=== PATIENT | male | born 1975 | race Caucasian/White ===

== ENCOUNTER 2016-05-09 17:31 | Emergency (ER) | payer OTHER ==
[2016-05-09 17:41] VITALS: BP 110/75
--- NOTE | 2016-05-09 17:59 | UC ---
Eye Complaint HPI - HPI Summary HPI Summary: 40 year old male presents for right eye lid swelling, yellow discharge, and itchiness x 2 days; today patient noticed that his left eye appeared reddened. Denies injury or changes in vision. - History of Current Complaint Chief Complaint: UCEye Stated Complaint: EYE IRRITATION Time Seen by Provider: 05/09/16 17:42 Hx Obtained From: Patient Onset/Duration: Gradual Onset Timing: Constant Severity Initially: Mild Severity Currently: Mild Pain Intensity: 2 Location of Injury: Conjunctiva, Eye Lid (upper) Character: Dull Aggravating Factor(s): Nothing Alleviating Factor(s): Nothing Associated Signs And Symptoms: Positive: Drainage (Purulent) - yellow drainage, Swelling - Upper right eye lid - Risk Factors Penetrating Injury Risk Factor: Negative Globe Rupture Risk Factors: Negative Acute Glaucoma Risk Factors: Negative Optic Artery Occlusion Risk Factors: Negative - Allergies/Home Medications Allergies/Adverse Reactions: Allergies Allergy/AdvReac Type Severity Reaction Status Date / Time No Known Allergies Allergy Verified 05/09/16 17:41 Home Medications: Home Medications Diazepam TAB(*) [Valium TAB(*)] 5 mg PO TID PRN 05/09/16 [History Confirmed ] Gabapentin TAB(NF) [Neurontin 600 mg TAB(NF)] 05/09/16 [History] Lurasidone HCl [Latuda] 05/09/16 [History] PMH/Surg Hx/FS Hx/Imm Hx Previously Healthy: Yes Endocrine History Of: Denies: Diabetes, Thyroid Disease, Hyperthyroidism, Hypothyroidism, Dyslipidemia Cardiovascular History Of: Denies: Cardiac Disorders, Hypertension, Pacemaker/ICD, Myocardial Infarction , Congestive Heart Failure, Atrial Fibrillation, Deep Vein Thrombosis, Bleeding Disorders Respiratory History Of: Denies: COPD, Asthma, Bronchitis, Pneumonia, Pulmonary Embolism GI/ History Of: Denies: Gastroesophageal Reflux, Ulcer, Gastrointestinal Bleed, Gall Bladder Disease, Kidney Stones, Diverticulitis, Renal Disease, Urosepsis Neurological History Of: Denies: TIA, CVA, Dementia, Seizures, Migraine Psychological History Of: Reports: Bipolar Disorder - Surgical History Surgical History: Yes Surgery Procedure, Year, and Place: left knee - Family History Known Family History: Positive: Diabetes - Father, Other - Pulmonary Hypertension - Social History Occupation: Disabled Lives: Alone Alcohol Use: None Substance Use Type: None Smoking Status (MU): Never Smoked Tobacco Have You Smoked in the Last Year: No Review of Systems Constitutional: Negative Skin: Negative Eyes: Drainage - Right eye, Eye Redness - Left eye ENT: Negative Respiratory: Negative Cardiovascular: Negative Gastrointestinal: Negative Genitourinary: Negative Motor: Negative Neurovascular: Negative Musculoskeletal: Negative Neurological: Negative Psychological: Negative All Other Systems Reviewed And Are Negative: Yes Physical Exam Triage Information Reviewed: Yes Appearance: Well-Appearing, No Pain Distress Vital Signs: Initial Vital Signs Temp 98.6 F 05/09/16 17:38 Pulse 64 05/09/16 17:38 Resp 20 05/09/16 17:38 BP 110/75 05/09/16 17:38 Pulse Ox 99 05/09/16 17:38 Vital Signs Reviewed: Yes Eye Exam: Other Eyes: Positive: Discharge - Right eye, Other: - Left conjunctiva erythema ENT Exam: Normal Dental Exam: Normal Neck exam: Normal Neck: Positive: Supple, Nontender, No Lymphadenopathy Respiratory Exam: Normal Respiratory: Positive: Chest non-tender, Lungs clear, Normal breath sounds Cardiovascular Exam: Normal Cardiovascular: Positive: RRR, No Murmur, Pulses Normal Abdominal Exam: Normal Abdomen Description: Positive: Nontender, No Organomegaly, Soft Bowel Sounds: Positive: Present Musculoskeletal Exam: Normal Neurological Exam: Normal Psychological Exam: Normal Skin Exam: Normal Eye Complaint Course/Dx - Differential Dx/Diagnosis Provider Diagnoses: conjunctivitis Discharge - Discharge Plan Condition: Stable Disposition: HOME Prescriptions: Polymyx/Trimethoprim OPTH* [Polytrim OPHTH*] 1 drop BOTH EYES QID #1 btl Patient Education Materials: Conjunctivitis (ED) Referrals: Shelley Grant NP [Primary Care Provider] - If Needed (If you are not improving in four days, return for re-evaluation. Please call if you have a question about how you should be progressing.) Additional Instructions: If you are not improving in four days, return for re-evaluation. Please call if you have a question about how you should be progressing.
== END 2016-05-09 18:28 | disposition home or self-care (01) ==
LOC: UCEAST 17:31
DX: H10.33 Unspecified acute conjunctivitis, bilateral (principal)
CPT/HCPCS: 99202; G0463

== ENCOUNTER 2017-09-20 15:41 | Emergency (ER) | payer OTHER ==
[2017-09-20 16:26] VITALS: BP 128/86
--- NOTE | 2017-09-20 16:44 | UC ---
Skin Complaint HPI - HPI Summary HPI Summary: Patient presents with 24 hours onset of redness, pain and swelling of his right lower extremity. He states he noticed it yesterday and it has more than doubled in size since then. He complains of chills. He denies any insect bites, or ticks. He is currently self treating for poison jennifer. He denies any injury or trauma. - History of Current Complaint Chief Complaint: UCSkin Time Seen by Provider: 09/20/17 16:33 Stated Complaint: IRRATION ON RIGHT ANKLE Hx Obtained From: Patient Onset/Duration: Gradual Onset, Lasting Hours Skin Exposure Onset/Duration: Hours Ago Onset Severity: Mild Current Severity: Moderate Pain Intensity: 8 Location: Discrete Aggravating Factor(s): Touch Alleviating Factor(s): Nothing Associated Signs & Symptoms: Positive: Chills - Allergy/Home Medications Allergies/Adverse Reactions: Allergies Allergy/AdvReac Type Severity Reaction Status Date / Time No Known Allergies Allergy Verified 09/20/17 16:26 Home Medications: Home Medications Benztropine TAB* [Cogentin TAB*] 2 mg PO BEDTIME 09/20/17 [History Confirmed ] OXcarbazepine [Trileptal] 300 mg PO BID 09/20/17 [History Confirmed 09/20/17] traZODone TAB* [Desyrel TAB*] 50 mg PO BEDTIME 09/20/17 [History Confirmed 09/20] Review of Systems Constitutional: Negative Skin: Rash Eyes: Negative ENT: Negative Respiratory: Negative Cardiovascular: Negative Gastrointestinal: Negative Genitourinary: Negative Motor: Negative Neurovascular: Negative Musculoskeletal: Negative Neurological: Negative Psychological: Negative Is Patient Immunocompromised?: No All Other Systems Reviewed And Are Negative: Yes PMH/Surg Hx/FS Hx/Imm Hx Previously Healthy: Yes - Surgical History Surgical History: Yes Surgery Procedure, Year, and Place: left knee - Family History Known Family History: Positive: Diabetes - Father, Other - Pulmonary Hypertension - Social History Occupation: Employed Full-time Lives: Alone Alcohol Use: None Substance Use Type: None Smoking Status (MU): Former Smoker Have You Smoked in the Last Year: No Physical Exam Triage Information Reviewed: Yes Appearance: Well-Appearing Vital Signs: Initial Vital Signs Temp 97.8 F 09/20/17 16:22 Pulse 82 09/20/17 16:22 Resp 16 09/20/17 16:22 BP 128/86 09/20/17 16:22 Pulse Ox 99 09/20/17 16:22 Vital Signs Reviewed: Yes Eye Exam: Normal ENT Exam: Normal Neck exam: Normal Respiratory Exam: Normal Cardiovascular Exam: Normal Skin Exam: Other - LLE; inspection with erythma, circular pattern with central induration, no flucuance. With surrouding pink warm skin, tender on palpation. no lymphangitis Course/Dx - Course Course Of Treatment: Patient presents wit 24 hours lle redness, pain, and swelling. There is no puncture wound, nor has the patient had any tick bites. He reports chills and fatige. I feel he should go to the emergency department for higher level of care as I cannot obtain blood work, nor imaging. I discussed this with the patient and he is in agreement to drive self to ther emergency department for further evaluation. At the time of discharge he was hemodynamically stable, and had normal vital signs. - Differential Diagnoses - Skin Complaint Differential Diagnoses: Cellulitis - Diagnoses Provider Diagnoses: cellulitis Discharge - Sign-Out/Discharge Documenting (check all that apply): Discharge/Admit/Transfer - Discharge Plan Condition: Stable Disposition: [facility] Patient Education Materials: Cellulitis (DC) Referrals: Miki WEST,Yimi Valero [Primary Care Provider] - Additional Instructions: Go directly to the [facility] ER. - Billing Disposition and Condition Condition: STABLE Disposition: EMTALA
== END 2017-09-20 16:45 | disposition short-term general hospital (02) ==
LOC: UCEAST 15:41
DX: L03.115 Cellulitis of right lower limb (principal); R68.83 Chills (without fever); Z87.891 Personal history of nicotine dependence
CPT/HCPCS: 99212; G0463

== ENCOUNTER 2017-09-20 16:57 | Emergency (ER) | payer OTHER ==
[2017-09-20 18:10] LABS: ABS Basophils 0 10^3/ul (0-0.2); ABS Eosinophils 0.1 10^3/ul (0-0.6); ABS Lymphocytes 1.2 10^3/ul (1.0-4.8); ABS Monocytes 0.6 10^3/ul (0-0.8); ABS Neutrophils 5.6 10^3/ul (1.5-7.7); ABS Nucleated RBC 0 10^3/ul; Eosinophil % 1.3 % (0-6); Hematocrit 44 % (42-52); Hemoglobin 15.3 g/dl (14.0-18.0); Lymphocyte % 15.6 % (25-47); Mean Corpuscular HGB Conc 35 g/dl (31-36); Mean Corpuscular Hemoglobin 32 pg (27-31); Mean Corpuscular Volume 91 fL (80-94); Mean Platelet Volume 8.6 um3 (7.4-10.4); Nucleated Red Blood Cells % 0.1; Platelet Count 151 10^3/ul (150-450); Red Blood Count 4.81 10^6/ul (4.0-5.4); Red Cell Distribution Width 12 % (10.5-15); White Blood Count 7.6 10^3/ul (3.5-10.8)
[2017-09-20 18:27] LABS: EGFR Non-African American 77.8 (>60)
--- NOTE | 2017-09-20 18:28 | ED ---
Skin Complaint - HPI Summary HPI Summary: Patient sent from to the ED complains of area of redness, pain, warmth, swelling on the medial right ankle 2 days. History of generalized poison jennifer infection 17 days but denies any prior rash/lesions/trauma at medial right ankle. Denies purulent discharge, fever, N/V, decreased range of motion in right ankle/foot/knee, rt calf tenderness, CP, SOB, abdomen pain. No history of IV drug use, no history of abscess. Denies history of immuno-incompetence. Denies medical history. - History of Current Complaint Chief Complaint: EDSoftTissueLowExtr Time Seen by Provider: 09/20/17 17:41 Stated Complaint: SWOLLEN RT ANKLE Hx Obtained From: Patient Onset/Duration: Started Days Ago Pain Intensity: 8 - Allergy/Home Medications Allergies/Adverse Reactions: Allergies Allergy/AdvReac Type Severity Reaction Status Date / Time No Known Allergies Allergy Verified 09/20/17 17:08 Home Medications: Home Medications Benztropine TAB* [Cogentin TAB*] 2 mg PO QPM 09/20/17 [History Confirmed ] Lurasidone(*) [Latuda] 160 mg PO QPM 09/20/17 [History Confirmed 09/20/17] OXcarbazepine TAB(*) [Trileptal 300 mg TAB(*)] 300 mg PO BID 09/20/17 [History Confirmed 09/20/17] diPHENhydraMINE PO* [Benadryl PO 25 MG TAB*] 25 mg PO Q4H PRN 09/20/17 [History Confirmed 09/20/17] traZODone TAB* [Desyrel TAB*] 50 mg PO BEDTIME 09/20/17 [History Confirmed 09/20] PMH/Surg Hx/FS Hx/Imm Hx Endocrine/Hematology History: Denies: Hx Diabetes, Hx Thyroid Disease Cardiovascular History: Denies: Hx Congestive Heart Failure, Hx Deep Vein Thrombosis, Hx Hypertension , Hx Myocardial Infarction, Hx Pacemaker/ICD Respiratory History: Denies: Hx Asthma, Hx Chronic Obstructive Pulmonary Disease (COPD), Hx Pneumonia, Hx Pulmonary Embolism GI History: Denies: Hx Gall Bladder Disease, Hx Gastrointestinal Bleed, Hx Ulcer, Hx Urosepsis History: Denies: Hx Kidney Stones, Hx Renal Disease Sensory History: Denies: Hx Hearing Aid Neurological History: Denies: Hx Dementia, Hx Migraine, Hx Seizures, Hx Transient Ischemic Attacks (TIA) Psychiatric History: Reports: Hx Bipolar Disorder Denies: Hx Panic Disorder - Surgical History Surgery Procedure, Year, and Place: left knee - Immunization History Immunizations Up to Date: Yes Infectious Disease History: No Infectious Disease History: Denies: Traveled Outside the [place] in Last 30 Days - Family History Known Family History: Positive: Diabetes - Father, Other - Pulmonary Hypertension - Social History Alcohol Use: None Substance Use Type: Reports: None Smoking Status (MU): Former Smoker Have You Smoked in the Last Year: No Review of Systems Constitutional: Negative Eyes: Negative ENT: Negative Cardiovascular: Negative Respiratory: Negative Gastrointestinal: Negative Genitourinary: Negative Musculoskeletal: Negative Positive: Other Neurological: Negative Psychological: Normal All Other Systems Reviewed And Are Negative: Yes Physical Exam - Summary Physical Exam Summary: 6 cm x 6 cm [place] of redness, swelling, warmth on the medial right lower extremity proximal to ankle joint. Nonfluctuant, no purulent discharge. Full range of motion of right ankle, right knee, no calf tenderness. PMS intact distally on right foot. Triage Information Reviewed: Yes Vital Signs On Initial Exam: Initial Vitals Temp Pulse Resp BP Pulse Ox 98.3 F 81 16 122/80 97 09/20/17 17:08 09/20/17 17:08 09/20/17 17:08 09/20/17 17:08 09/20/17 17:08 Vital Signs Reviewed: Yes Appearance: Positive: Well-Appearing Skin: Positive: Warm Head/Face: Positive: Normal Head/Face Inspection Eyes: Positive: Normal Neck: Positive: Supple Respiratory/Lung Sounds: Positive: Clear to Auscultation Cardiovascular: Positive: Normal Abdomen Description: Positive: Nontender Musculoskeletal: Positive: Normal Neurological: Positive: Normal Psychiatric: Positive: Normal AVPU Assessment: Alert - [place] Coma Scale Best Eye Response: 4 - Spontaneous Best Motor Response: 6 - Obeys Commands Best Verbal Response: 5 - Oriented Coma Scale Total: 15 Diagnostics - Vital Signs Vital Signs Temp Pulse Resp BP Pulse Ox 09/20/17 17:08 98.3 F 81 16 122/80 97 - Laboratory Lab Results: Lab Results 09/20/17 Range/Units 18:04 WBC 7.6 (3.5-10.8) 10^3/ul RBC 4.81 (4.0-5.4) 10^6/ul Hgb 15.3 (14.0-18.0) g/dl Hct 44 (42-52) % MCV 91 (80-94) fL MCH 32 H (27-31) pg MCHC 35 (31-36) g/dl RDW 12 (10.5-15) % Plt Count 151 (150-450) 10^3/ul MPV 8.6 (7.4-10.4) um3 Neut % (Auto) 74.0 (38-83) % Lymph % (Auto) 15.6 L (25-47) % [place] % (Auto) 8.6 H (0-7) % Eos % (Auto) 1.3 (0-6) % Baso % (Auto) 0.5 (0-2) % Absolute Neuts (auto) 5.6 (1.5-7.7) 10^3/ul Absolute Lymphs (auto) 1.2 (1.0-4.8) 10^3/ul Absolute Monos (auto) 0.6 (0-0.8) 10^3/ul Absolute Eos (auto) 0.1 (0-0.6) 10^3/ul Absolute Basos (auto) 0 (0-0.2) 10^3/ul Absolute Nucleated RBC 0 10^3/ul Nucleated RBC % 0.1 ESR Pending Result Diagrams: 09/20/17 18:04 09/20/17 18:04 Lab Statement: Any lab studies that have been ordered have been reviewed, and results considered in the medical decision making process. Course/Dx - Course Course Of Treatment: Sent from [facility] for evaluation of cellulitis. Blood work unremarkable. No indication of joint involvement on physical exam. Rx for Keflex and pain medication. - Diagnoses Provider Diagnoses: Cellulitis Discharge - Sign-Out/Discharge Documenting (check all that apply): Discharge/Admit/Transfer - Discharge Plan Condition: Stable Disposition: HOME Patient Education Materials: Cellulitis (ED) Referrals: Miki WEST,Yimi Valero [Primary Care Provider] - Additional Instructions: Follow-up with primary care. Return to the ED for any new or worsening symptoms - Billing Disposition and Condition Condition: STABLE Disposition: HOME
[2017-09-20] MEDS ORDERED: Cephalexin CAP* 500 MG PO ONE (19:00)
[2017-09-20] MEDS ORDERED: Dexamethasone TAB* 4 MG PO ONE (19:34)
[2017-09-20 19:56] VITALS: BP 154/79
== END 2017-09-20 19:53 | disposition home or self-care (01) ==
LOC: ED 16:57
DX: L03.115 Cellulitis of right lower limb (principal); F31.9 Bipolar disorder, unspecified; Z87.891 Personal history of nicotine dependence
CPT/HCPCS: 36415; 80053; 83605; 85025; 85652; 86140; 99282; A9270-GY; J8540

== ENCOUNTER 2023-06-11 11:26 | Inpatient (IN) ==
[2023-06-11] MEDS: NS 0.9% 1000 ml BAG 1,000 ML IV ONE ×3 (12:41→18:10)
[2023-06-11 12:48] LABS: ABS Basophils 0.1 10^3/uL (0.0-0.1); ABS Lymphocytes 1.6 10^3/uL (1.0-4.8); ABS Monocytes 0.8 10^3/uL (0.0-1.1); ABS Neutrophils 9.7 10^3/uL (1.5-7.6); ABS Nucleated RBC 0.01 10^3/ul; Eosinophil % 0.1 %; Hematocrit 47.4 % (38-53); Hemoglobin 16.4 g/dL (13.2-16.3); Lymphocyte % 13.3 %; Mean Corpuscular Hemoglobin 31.8 pg (27-33); Mean Corpuscular Hgb Conc 34.6 g/dL (31-36); Mean Corpuscular Volume 91.8 fL (80-97); Mean Platelet Volume 8.1 fL (7.5-11.2); Nucleated Red Blood Cells % 0.1 %/100WBC (0.0-0.8); Platelet Count 280 10^3/uL (150-450); Red Blood Count 5.17 10^6/uL (4.06-5.63); Red Cell Distribution Width 12.2 % (12-17); White Blood Count 12.2 10^3/uL (3.6-10.2)
[2023-06-11 13:05] LABS: Activated Partial Thrombo Time 28.2 seconds (26.0-38.0); INR 1.11 (0.83-1.13)
[2023-06-11 13:08] LABS: ALT 18 U/L (7-52); AST 22 U/L (13-39); Albumin 4.8 g/dL (3.2-5.2); Albumin/Globulin Ratio 1.6 (1-3); Alkaline Phosphatase 69 U/L (35-149); Anion Gap 16 mmol/L (2-16); Blood Urea Nitrogen 12 mg/dL (6-24); C Reactive Protein < 1.00 mg/L (<8.01); CO2 Carbon Dioxide 21 mmol/L (22-32); Calcium 10.6 mg/dL (8.6-10.3); Chloride 102 mmol/L (101-111); Creatinine, Serum 1.09 mg/dL (0.67-1.17); Glucose 125 mg/dL (70-100); Lipase < 10 U/L (11.0-82.0); Potassium 3.8 mmol/L (3.5-5.0); Sodium 139 mmol/L (135-145); Total Protein 7.8 g/dL (6.4-8.9); eGFR CKD-EPI 84.8 (>60)
[2023-06-11 13:13] LABS: High Sens Troponin Baseline < 3 pg/mL (<20)
[2023-06-11 14:08] LABS: High Sensitivity Troponin 1 Hr 3 pg/mL (<20)
[2023-06-11] MEDS: NS 0.9% 250 ml 250 ML IV ONE (14:15)
[2023-06-11] MEDS: Famotidine IV 10 MG/ML 2 ml VIAL (20 mg) IV SLOW PU ONE (14:30)
[2023-06-11] MEDS: methylPREDNISolone SOD SUCC 125 mg 2 ML VIAL IV ONE (14:31)
[2023-06-11 15:43] LABS: Acetaminophen < 15 mcg/mL; Salicylate < 2.50 mg/dL (<30)
[2023-06-11 15:57] LABS: TSH Ultra Thyroid Stim Horm 1.64 mcIU/mL (0.34-5.60)
[2023-06-11] MEDS: Iohexol 350 (CONTRAST) 500 ML MDV IV ONE ×2 (16:03→20:57)
[2023-06-11 16:37] LABS: Hepatitis B Surface Antigen Nonreactive (Nonreactive)
[2023-06-11 16:42] LABS: Hepatitis A Ab IgM Negative (Negative)
[2023-06-11 16:43] LABS: Hepatitis B Core IgM Nonreactive (Nonreactive)
[2023-06-11 16:54] LABS: Hepatitis C Antibody Negative (Negative)
[2023-06-11] MEDS ORDERED: Lorazepam PYXIS KEY PRN ×2 (17:08→21:52)
[2023-06-11] MEDS: LORazepam 2 mg VIAL 1 ml IV PUSH ONE ×2 (17:27→22:14)
[2023-06-11 17:34] LABS: Creatine Kinase 31 U/L (10-223)
[2023-06-11 17:47] LABS: Urine Appearance Clear; Urine Benzodiazepine Screen None Detected (None Detect); Urine Bilirubin Negative (Negative); Urine Blood Negative (Negative); Urine Cannabinoids Screen Presumptive Positive (None Detect); Urine Color Light-Yellow; Urine Glucose Negative (Negative); Urine Ketones 2+ (Negative); Urine Nitrite Negative (Negative); Urine Opiates Screen None Detected (None Detect); Urine Protein Negative (Negative); Urine Specific Gravity 1.028 (1.002-1.030); Urine Urobilinogen Negative (Negative); Urine pH 7.5 (5.0-8.0)
[2023-06-11] MEDS ORDERED: Vancomycin 1,000 MG in NS 0.9% 250 ml 250 ML IVPB SCH (18:00)
[2023-06-11] MEDS: Cefepime 2 GM in Dextrose 2 GM/50 ML BAG IV ONE (18:12)
[2023-06-11] MEDS: Acetaminophen IV 1 GM/100ML 1,000 MG/100 ML BAG IV ONE (18:14)
[2023-06-11] MEDS: Vancomycin 1,000 MG - ED ONCE IVPB ONE (19:21)
[2023-06-11 20:06] LABS: PCO2 Arterial <20 mmHg (35-45); PO2 Arterial 152 mmHg (80-100)
[2023-06-11 20:50] LABS: C Reactive Protein < 1.00 mg/L (<8.01)
[2023-06-11 21:40] LABS: Erythrocyte Sed Rate 7 mm/Hr (0-14)
[2023-06-12 06:24] LABS: Venous Bicarbonate HCO3 23.2 mmol/L (24-28)
[2023-06-12 06:32] LABS: ABS Lymphocytes 1.2 10^3/uL (1.0-4.8); ABS Monocytes 0.9 10^3/uL (0.0-1.1); ABS Neutrophils 9.2 10^3/uL (1.5-7.6); ABS Nucleated RBC 0.01 10^3/ul; Hemoglobin 13.5 g/dL (13.2-16.3); Lymphocyte % 10.6 %; Mean Corpuscular Hgb Conc 33.9 g/dL (31-36); Mean Corpuscular Volume 91.6 fL (80-97); Mean Platelet Volume 7.8 fL (7.5-11.2); Platelet Count 208 10^3/uL (150-450); Red Blood Count 4.37 10^6/uL (4.06-5.63); Red Cell Distribution Width 12.5 % (12-17); White Blood Count 11.3 10^3/uL (3.6-10.2)
[2023-06-12 06:46] LABS: Calcium 8.9 mg/dL (8.6-10.3); Creatinine, Serum 0.78 mg/dL (0.67-1.17); Potassium 4.1 mmol/L (3.5-5.0); eGFR CKD-EPI 111.4 (>60)
[2023-06-12 07:57] LABS: Magnesium 1.9 mg/dL (1.9-2.7)
[2023-06-13] MEDS: Influenza vaccine *QUAD* *2023-24* 0.5 ML SYRINGE IM ONE (08:46)
[2023-06-13] MEDS: Pneumococcal 20-Valent Conj 0.5 ML SYR Vaccine IM ONE (08:47)
[2023-06-13] MEDS: Benzocaine/Menthol LOZ PO PRN (10:11)
[2023-06-18 09:02] VITALS: BP 122/84
== END 2023-06-18 18:00 | disposition home or self-care (01) | DRG 753 ==
LOC: EDHOLD 11:26 → ED 11:26 → SUATTDRO 18:50 → OBSVTOIN 18:50 → MED 20:54 → BSU 06-14 17:15
PROVIDERS: ADMIT Internal Medicine; ATTEND Student in an Organized Health Care Education/Training Program